=== PATIENT | female | born 2000 | race Caucasian/White ===

== ENCOUNTER → 2022-06-24 | Outpatient (CLI) | payer SELFPAY ==
[2022-06-26 22:06] LABS: Chlamydia By Nucleic Acid AMP Negative (Negative)
[2022-06-26 22:21] LABS: Gonococcus By Nucleic Acid AMP Negative (Negative)
[2022-07-03 17:17] LABS: HPV Reflexed? NOT INDICATED
== END | disposition home or self-care (01) ==
LOC: LABSPEC 16:40
PROVIDERS: Referring Provider Registered Nurse; Visit Provider Registered Nurse
DX: Z01.419 Encounter for gynecological examination (general) (routine) without abnormal findings (principal); N97.0 Female infertility associated with anovulation
CPT/HCPCS: 87491; 87591; 88175; G0145

== ENCOUNTER → 2022-08-01 | Outpatient (CLI) | payer OTHER, SELFPAY ==
[2022-08-01 11:06] LABS: Progesterone Level 19.62 ng/mL (See Comment)
[2022-08-13 20:36] LABS: HPV Reflexed? NOT INDICATED
== END | disposition home or self-care (01) ==
PROVIDERS: PCP Registered Nurse; Referring Provider Registered Nurse; Visit Provider Registered Nurse
DX: N97.0 Female infertility associated with anovulation (principal)
CPT/HCPCS: 36415; 81241; 84144; 88175; G0145

== ENCOUNTER → 2022-08-27 | Outpatient (CLI) | payer SELFPAY ==
[2022-08-27 14:59] LABS: Hemoglobin 13.6 g/dL (12.0-15.0); Mean Corp Hgb Conc 32.4 g/dL (32-36); Mean Corpuscular Hgb 29.2 pg (27.0-32.0); Mean Corpuscular Volume 90.3 fL (81-99); Mean Platelet Vol. 10.9 fl (6.2-12.0); Platelet Count 181 K/mm3 (150-450); RBC Distribution Width SD 42.6 fl (35.1-43.9); Red Blood Count 4.65 M/mm3 (4.2-5.4); White Blood Count 7.6 K/mm3 (4.4-11.0)
== END | disposition home or self-care (01) ==
LOC: LAB 14:15
PROVIDERS: PCP Registered Nurse; Referring Provider Registered Nurse; Visit Provider Registered Nurse
DX: N97.0 Female infertility associated with anovulation (principal)
CPT/HCPCS: 36415; 85027

== ENCOUNTER → 2022-10-15 | Outpatient (CLI) | payer SELFPAY ==
--- NOTE | 2022-10-15 11:25 | RAD_ITS ---
STUDY: HYSTEROSALPINGOGRAM. REASON FOR EXAM: Female, 22 years old. Infertility FLUOROSCOPY TIME (if supplied): ( 14 seconds ) minutes/seconds. 2.98 mGy. 2 fluoroscopic images were obtained. TECHNIQUE: The training representative introduced contrast into the uterus. Imaging was obtained. COMPARISON: None. FINDINGS: The uterus is unremarkable. Both fallopian tubes are patent with free spill. RAD/Salpingogram IMPRESSION: Patency of both fallopian tubes. Uterus is unremarkable. Electronically Signed: Terry Manzano MD at 12:17 EDT ,
--- NOTE | 2022-10-15 12:14 | PCM.OPRPT ---
Problems Associated Problem List Diagnoses (1) Infertility: Report of Operation Date of Procedure: 10/15/22 Pre-Operative Diagnosis: infertility Post-Operative Diagnosis: infertility Surgery/Procedure Performed:: hysterosalpingogram Description of Surgical Findings:: Findings: Bilateral tubal patency and normal uterine cavity Surgeon: Alison Yoo swimming pool maintenance: None Type of Anesthesia: None Special Medications: none Specimen's removed: none Drains: none Estimated Blood Loss (mL): none Fluids Replaced: none Description of Procedure: Operative details: Patient was taken to the x-ray room and was placed on the x-ray table and was in the dorsal lithotomy position. Speculum was placed in the vagina and the cervix prepped with Betadine and the HSG catheter was easily introduced into the uterus and speculum removed. Radiologist was brought in and while pushing radiopaque dye into the uterus via the HSG catheter the radiologist took multiple images and views and confirmed bilateral tubal patency seen. No gross uterine filling defects or abnormalities were seen. All instruments removed from the vagina and the uterus without complication. Patient tolerated the procedure well. Multi Select Codes Urinary/Genital Urinary/Genital CPT Codes: 92963 HSG/SIS
== END | disposition home or self-care (01) ==
LOC: RAD 11:21
PROVIDERS: PCP Registered Nurse; Referring Provider Obstetrics & Gynecology; Visit Provider Obstetrics & Gynecology
DX: N97.0 Female infertility associated with anovulation (principal)
CPT/HCPCS: 58340; 74740; Q9967